=== PATIENT | male | born 1955 | race Caucasian/White ===

== ENCOUNTER 2018-08-30 06:54 | Emergency (ER) | payer BC, SELFPAY ==
[2018-08-30 06:58] VITALS: BP 156/97; PULSE 70; RESP 15; TEMP 36.8; O2SAT 98
--- NOTE | 2018-08-30 07:04 | ED.GENADUL_ITS ---
Discharge Plan Disposition Patient Disposition: HOME Condition: Good Discharge Details Chief Complaint: EyeProblem Clinical Impression: Sensation of foreign body in eye, Sty, internal Primary Care Provider: Rimma Alberto ED Provider: Hernandez Andrews Home Meds and New Rx's Prescriptions: New erythromycin 5 mg/gram (0.5 %) Ointment 3.5 g ophthalmic (eye) QID Qty: 3.5 RF: 0 Continued multivitamin [Men's Multi-Vitamin] 1 EACH tablet 1 ea PO DAILY RF: 0 vitamin E 1,000 UNIT capsule 1,000 unit PO DAILY RF: 0 amlodipine [Norvasc] 2.5 MG tablet 5 mg PO DAILY RF: 0 ascorbate calcium (vitamin C) 500 MG tablet 500 mg PO DAILY RF: 0 cholecalciferol (vitamin D3) 1,000 UNIT tablet 1,000 unit PO DAILY RF: 0 omega-3 fatty acids [Fish Oil] 300 MG capsule 300 mg PO DAILY RF: 0 EPIPEN 0.3 MG/0.3 ML PEN.INJCTR 0.3 mg IM PRN PRNRF: 0 Discharge Instructions Additional Instructions: Use warm compresses and antibiotic ointment as directed. Contact your eye doctor or should be eye care for follow-up in the next day or 2. Return to ED if increasing eye pain, swelling, change in vision. Referrals: [facility] [Outside] Medical Decision Making Patient presenting with right eye irritation/foreign body sensation. Feels like there is something up under the lid. No vision change. No real eye pain. Irritation every time he blinks. Right eye anesthetized with tetracaine drops. Fluorescein stain placed. No obvious foreign body and no corneal uptake of fluorescein on initial exam. Upper eyelid everted and no foreign body noted. Small pimple-like inflamed area towards the medial aspect consistent with a small internal stye noted. Eyelid swiped with Q-tip and no foreign body noted. Eye further examined with slit lamp. No evidence of foreign body or rust ring noted on slit-lamp exam. No fluorescein uptake on slit-lamp exam. We will have the patient use hot compresses and will start erythromycin ointment. Follow-up with his building performance specialist or with [facility] in the next day or 2 for reevaluation. Return to ED if vision changes, increased pain swelling, fever, other concerns. HPI General Mode of arrival: ambulatory . Date/Time Provider Initiated Documentation: 08/30/18 07:04 . Limitations to Documentation: no limitations . Information obtained by: patient . HPI Narrative: Patient presents with right eye irritation. He was working on a car yesterday. He felt something get in his eye. He has had irritation ever since. He flushed his eyes multiple times. This morning continues to have discomfort. He had a little bit of crusting this morning. His eye is red and irritated. There is no change in the vision. No other complaints. Related Data Home Medications Medication Instructions Recorded Confirmed Epipen 0.3 mg IM PRN PRN 12/06/13 06/10/15 amlodipine [Norvasc] 5 mg PO DAILY tab-cap 12/06/13 06/10/15 ascorbate calcium (vitamin C) 500 mg PO DAILY 12/06/13 06/10/15 cholecalciferol (vitamin D3) 1,000 unit PO DAILY 12/06/13 06/10/15 multivitamin [Men's Multi-Vitamin] 1 ea PO DAILY 12/06/13 06/10/15 omega-3 fatty acids [Fish Oil] 300 mg PO DAILY 12/06/13 06/10/15 vitamin E 1,000 unit PO DAILY 12/06/13 06/10/15 erythromycin 3.5 g OPHTHALMIC (EYE) QID #3.5 gm 08/30/18 Previous Rx's Medication Instructions Recorded erythromycin 3.5 g OPHTHALMIC (EYE) QID #3.5 gm 08/30/18 Allergies Allergy/AdvReac Type Severity Reaction Status Date / Time aspirin Allergy Anaphylaxsi Unverified 06/10/15 18:31 s General Stated Complaint: EyeProblem JOE: 4 Review of Systems Constitutional Denies fever(s) and Denies headache(s) Eyes Denies blurry vision, Denies change in vision, Reports eye discharge, Reports irritation, Denies eye pain and Denies photophobia ENT Denies headache(s) Neurologic Denies headache(s) [facility] Medical History Hypertension (Chronic) Social History Smoking/Tobacco Use Status: Former Tobacco Use Drug use: Rarely Substance use type: does not use Do you feel safe at home: Yes Exam Const General: cooperative, comfortable and no acute distress Orientation: alert and oriented x3 HENMT Head: normocephalic and atraumatic Face and sinus: normal facial exam Eyes Periorbital: periorbital findings normal Eyelids: eyelid abnormality right upper eyelid inflamed cyst (tiny pimple like inflamed area noted on eyelid eversion) internal lid Conjunctivae: conjunctival abnormality right conjunctival injection; without chemosis and without discharge Sclera: sclerae normal Cornea: corneas normal and fluorescein used Pupils: PERRL EOM: EOM intact bilaterally Course Vital Signs Temperature 98.2 F 08/30/18 06:58 Pulse 70 08/30/18 06:58 Respiratory Rate 15 08/30/18 06:58 Blood Pressure 156/97 H 08/30/18 06:58 Pulse Oximetry 98 08/30/18 06:58 Temperature 98.2 F 08/30/18 06:58 Temperature Source Tympanic 08/30/18 06:58 Pulse 70 08/30/18 06:58 Respiratory Rate 15 08/30/18 06:58 Respiratory Effort Non-Labored 08/30/18 06:58 Blood Pressure 156/97 H 08/30/18 06:58 Blood Pressure Position Sitting 08/30/18 06:58 Pulse Oximetry 98 08/30/18 06:58 Oxygen Delivery Method Room Air 08/30/18 06:58 Oxygen Flow Rate 0 08/30/18 06:58 Pain Level 5 08/30/18 06:58
[2018-08-30] MEDS: Erythromycin Ophth Oint 3.5 GM TUBE OD (07:32)
[2018-08-30] MEDS: Tetracaine 0.5% 4 ML BTL (07:32)
[2018-08-30] MEDS: Fluorescein STRIPS 100/BOX 1 MG (07:32)
== END 2018-08-30 07:44 | disposition home or self-care (01) ==
LOC: ER 07:48
PROVIDERS: Emergency Provider Emergency Medicine; PCP Nurse Practitioner Family
DX: H57.11 Ocular pain, right eye (principal); H00.021 Hordeolum internum right upper eyelid; I10 Essential (primary) hypertension
CPT/HCPCS: 99283

== ENCOUNTER 2018-09-15 11:22 | Outpatient (REF) | payer BC, SELFPAY ==
[2018-09-15 19:21] LABS: Calculated LDL 198 mg/dL; Cholesterol 294 mg/dL (50-200); Glucose 103 mg/dL (70-100); HDL Cholesterol 37 mg/dL (40-60); Triglyceride 295 mg/dL (30-150)
== END 2018-09-15 11:42 ==
LOC: NCHCN 11:22
PROVIDERS: PCP Nurse Practitioner Family; Visit Provider Nurse Practitioner Family
DX: E78.5 Hyperlipidemia, unspecified (principal); I10 Essential (primary) hypertension; K21.9 Gastro-esophageal reflux disease without esophagitis; F41.9 Anxiety disorder, unspecified
CPT/HCPCS: 80061; 82947; 83721

== ENCOUNTER 2018-11-20 09:43 | Outpatient (REF) | payer BC, SELFPAY ==
[2018-11-20 21:35] LABS: ALT 34 U/L (16-63); AST 21 U/L (15-37); HDL Cholesterol 42 mg/dL (40-60); LDL CHOLESTEROL 63 mg/dL (<100)
[2018-11-20 21:59] LABS: Creatine Kinase 281 U/L (39-308)
== END 2018-11-20 10:03 ==
LOC: NCHCN 09:43
PROVIDERS: PCP Nurse Practitioner Family; Visit Provider Nurse Practitioner Family
DX: E78.5 Hyperlipidemia, unspecified (principal)
CPT/HCPCS: 82550; 83721; 83718; 84450; 84460

== ENCOUNTER 2019-02-22 11:00 | Outpatient (REF) | payer BC, SELFPAY ==
[2019-02-22 22:35] LABS: Anion Gap 7.8 mmol/L (3-11); BUN 14 mg/dL (7-18); CO2 30.2 mmol/L (21.0-32.0); CREATININE 1.09 mg/dL (0.70-1.30); Calcium 9.8 mg/dL (8.5-10.1); Chloride 108 mmol/L (98-107); Glucose 87 mg/dL (74-106); Potassium 4.9 mmol/L (3.5-5.1); Sodium 146 mmol/L (136-145)
== END 2019-02-22 11:20 ==
LOC: NCHCN 11:00
PROVIDERS: PCP Nurse Practitioner Family; Visit Provider Nurse Practitioner Family
DX: I10 Essential (primary) hypertension (principal)
CPT/HCPCS: 80048

== ENCOUNTER 2019-11-05 09:20 | Outpatient (REF) | payer BC, SELFPAY ==
[2019-11-05 21:27] LABS: ALT 43 U/L (16-63); AST 21 U/L (15-37); Albumin 4.1 g/dL (3.4-5.0); Alkaline Phosphatase 88 U/L (46-116); Anion Gap 7.6 mmol/L (3-11); BUN 12 mg/dL (7-18); CO2 28.4 mmol/L (21.0-32.0); CREATININE 0.98 mg/dL (0.70-1.30); Calcium 9.1 mg/dL (8.5-10.1); Calculated LDL 77 mg/dL (<100); Chloride 105 mmol/L (98-107); Cholesterol 147 mg/dL (<200); Glucose 91 mg/dL (74-106); HDL Cholesterol 42 mg/dL (40-60); Potassium 4.3 mmol/L (3.5-5.1); Sodium 141 mmol/L (136-145); Triglyceride 141 mg/dL (<150)
[2019-11-06 00:18] LABS: Creatine Kinase 217 U/L (39-308); Total Protein 6.9 g/dL (6.4-8.2)
== END 2019-11-05 09:40 ==
LOC: NCHCN 09:20
PROVIDERS: PCP Nurse Practitioner Family; Visit Provider Nurse Practitioner Family
DX: I10 Essential (primary) hypertension (principal); E78.5 Hyperlipidemia, unspecified
CPT/HCPCS: 80053; 80061; 82306; 82550; 85027; 82607; 84443

== ENCOUNTER 2020-05-14 08:09 | Outpatient (REF) | payer BC, SELFPAY ==
[2020-05-14 18:20] LABS: BUN 17 mg/dL (7-18); CREATININE 1.2 mg/dL (0.70-1.30); Calcium 9.3 mg/dL (8.5-10.1); Chloride 105 mmol/L (98-107); Glucose 107 mg/dL (74-106); Potassium 4.7 mmol/L (3.5-5.1); Sodium 144 mmol/L (136-145)
== END 2020-05-14 08:10 | disposition home or self-care (01) ==
LOC: NCHCN 08:09
PROVIDERS: PCP Nurse Practitioner Family; Visit Provider Nurse Practitioner Family
DX: I10 Essential (primary) hypertension (principal)
CPT/HCPCS: 80048

== ENCOUNTER 2020-11-25 10:06 | Outpatient (REF) | payer BC, SELFPAY ==
[2020-11-25 15:38] LABS: ALT 47 U/L (16-63); AST 24 U/L (15-37); Calculated LDL 73 mg/dL (<100); Cholesterol 172 mg/dL (<200); HDL Cholesterol 45 mg/dL (40-60); Triglyceride 270 mg/dL (<150)
[2020-11-25 15:53] LABS: Creatine Kinase 183 U/L (39-308)
== END 2020-11-25 10:07 | disposition home or self-care (01) ==
LOC: NCHCN 10:06
PROVIDERS: PCP Nurse Practitioner Family; Visit Provider Nurse Practitioner Family
DX: E78.5 Hyperlipidemia, unspecified (principal)
CPT/HCPCS: 80061; 82550; 84450; 84460

== ENCOUNTER 2020-12-23 08:50 | Outpatient (REF) | payer BC, SELFPAY ==
[2020-12-23 14:27] LABS: Anion Gap 10.6 mmol/L (3-11); BUN 13 mg/dL (7-18); CO2 27.4 mmol/L (21.0-32.0); CREATININE 1.1 mg/dL (0.70-1.30); Calcium 9.5 mg/dL (8.5-10.1); Chloride 105 mmol/L (98-107); Glucose 99 mg/dL (74-106); Sodium 143 mmol/L (136-145)
== END 2020-12-23 08:51 | disposition home or self-care (01) ==
LOC: NCHCN 08:50
PROVIDERS: PCP Nurse Practitioner Family; Visit Provider Nurse Practitioner Family
DX: I10 Essential (primary) hypertension (principal)
CPT/HCPCS: 80048

== ENCOUNTER 2021-02-16 16:40 | Outpatient (REF) | payer BC, SELFPAY ==
[2021-02-16 12:57] LABS: Bacteria Rare HPF (Negative); C & S Indicated? No; Casts Negative LPF (Negative); Crystals Negative HPF (Negative); Epithelial Cells Rare HPF (Negative); Mucus Trace (Negative); WBC 0-2 HPF (0-5)
== END 2021-02-16 16:41 | disposition home or self-care (01) ==
LOC: NCHCN 16:40
PROVIDERS: PCP Nurse Practitioner Family; Visit Provider Nurse Practitioner Family
DX: R31.9 Hematuria, unspecified (principal); R10.9 Unspecified abdominal pain
CPT/HCPCS: 81015; 87086

== ENCOUNTER 2021-02-18 16:21 | Outpatient (REF) | payer BC, SELFPAY ==
[2021-02-18 12:05] LABS: Source Nasal/Nares
[2021-02-18 15:16] LABS: COVID-19 PCR Negative (Negative)
== END 2021-02-18 16:22 | disposition home or self-care (01) ==
LOC: LBN 16:21
PROVIDERS: PCP Nurse Practitioner Family; Visit Provider Nurse Practitioner Gerontology
DX: Z20.822 Contact with and (suspected) exposure to COVID-19 (principal)
CPT/HCPCS: 87635

== ENCOUNTER 2021-02-19 12:23 | Day surgery (SDC) | payer BC, SELFPAY ==
[2021-02-19 12:27] VITALS: BP 153/94; PULSE 72; RESP 16; TEMP 36.6; O2SAT 97
[2021-02-19] MEDS: Lactated Ringers 1,000 ML 80 ML IV (13:00)
--- NOTE | 2021-02-19 13:37 | W.ANESPRE ---
General Info Date of Service Date Performed: 02/19/21 Height: 5 ft 9 in Weight: 80.2 kg Body Mass Index (BMI): 26.1 Surgical Procedure: Operation Date: 02/19/21 14:25 Proposed Procedures Side Surgeon p Cystoscopy/Laser/Retrograde/Ureteroscopy Right Dimitri Alberts MD Meds Allergies and Home Medications Allergies Allergy/AdvReac Type Severity Reaction Status Date / Time aspirin Allergy Severe Anaphylaxsi Verified 02/19/21 12:33 s NSAIDS (Non-Steroidal Allergy Severe Anaphylaxis Verified 02/19/21 12:33 Anti-Inflamma Home Medication Medication Instructions Recorded Epipen 0.3 mg IM PRN PRN 12/06/13 Fish Oil 300 mg PO DAILY 12/06/13 amlodipine [Norvasc] 5 mg PO DAILY tab-cap 12/06/13 ascorbate calcium (vitamin C) 500 mg PO DAILY 12/06/13 cholecalciferol (vitamin D3) 1,000 unit PO DAILY 12/06/13 multivitamin [Men's Multi-Vitamin] 1 ea PO DAILY 12/06/13 vitamin E 1,000 unit PO DAILY 12/06/13 atorvastatin 20 mg tablet 20 mg PO DAILY 02/18/21 lisinopril 10 mg tablet 10 mg PO DAILY 02/18/21 Current Visit Medications: Current Medications Generic Name Dose Route Start Last Admin Trade Name Freq PRN Reason Stop Dose Admin Ringer's Solution 1,000 mls @ 80 mls/hr 02/19/21 06:00 02/19/21 13:00 IV 03/20/21 23:59 80 mls/hr INFUSION SHAYLEE Administration Cefazolin Sodium/Dextrose 2 gm in 50 mls @ 100 mls/hr 02/19/21 06:00 Ancef Duplex IVPB 02/19/21 16:00 PREOP SHAYLEE IV Miscellaneous Supplies 1 each 02/19/21 06:00 Iv Access IV 03/20/21 23:59 DIRECTED SHAYLEE Sodium Chloride 0 ml 02/19/21 06:00 Normal Saline Flush 10 Ml Syr IV 03/20/21 23:59 PRN PRN Sodium Chloride 0 ml 02/19/21 06:00 Normal Saline 10 Ml Vial IJ 03/20/21 23:59 DIRECTED PRN Sterile Water 0 ml 02/19/21 06:00 Water,Injection,Sterile 10 Ml Vial IJ 03/20/21 23:59 DIRECTED PRN PFSH Active Problems Active Problems: Problem Status Onset Code Hypertension I10 Cellulitis and abscess of trunk Medical History Medical History ADD (attention deficit disorder) Anxiety Depression Erectile dysfunction Gross hematuria HLD (hyperlipidemia) Hypertriglyceridemia Migraine Nephrolithiasis Osteoarthritis Patellofemoral syndrome Right flank pain Sebaceous cyst Sleeping difficulties Tobacco Smoking/Tobacco Use Status: Former Tobacco Use Substance Use Substance use: Rarely Substance use type: does not use Vital Signs and Lab Results Vital Signs Most Recent Vital Signs in EMR: Most Recent Vital Signs Temp Pulse Resp BP Pulse Ox 36.6 C 72 16 153/94 H 97 02/19/21 12:27 02/19/21 12:27 02/19/21 12:27 02/19/21 12:27 02/19/21 12:27 Lab Results Blood Type / Crossmatch: No Data to Display Complete Blood Count: No Data to Display Complete Metabolic Panel: No Data to Display Liver Function Panel: No Data to Display Coagulation Panel: No Data to Display Cardiac Panel: No Data to Display Arterial Blood Gas: No Data to Display Venous Blood Gas: No Data to Display Pancreas Panel: No Data to Display Thyroid Panel: No Data to Display Infectious Disease: Coronavirus (COVID-19)(PCR) Negative (Negative) 02/18/21 11:40 02/18/21 Coronavirus 2019 Source Nasal/Nares 02/18/21 11:40 02/18/21 Blood Cultures: No Data to Display Toxicology Panel: No Data to Display Anesthesia Assessment and Plan Anesthesia History Personal History: No History of Anesthesia Complications Family History: No Family History of Anesthesia Complications Exercise Tolerance Exercise Tolerance: Metabolic Equivalents>4 Pertinent Negatives Pertinent Negatives: No Symptoms of GERD Cardiac & Pulmonary Exam Cardiac Exam: Normal S1/S2 Heart Sounds Pulmonary Exam: Clear Bilateral Breath Sounds Implantable Cardiac Device Does patient have a Pacemaker or an ICD?: No Airway Exam Known Difficult Airway: No Mallampati Class: 2 Mouth Opening: Normal (> 3cm) Thyromental Distance: Greater than 3 cm Neck Range of Motion: Full ROM Neck Circumference: Normal Teeth Condition: Removable Dentures/Plates Upper and Removable Dentures/Plates Lower ASA Classification ASA Score: ASA 2 Emergency Case?: No NPO Status NPO Status: NPO Clears >2 hours, Solids >8 hours Anesthesia Plan Resuscitation Status: Full Code Anesthesia Technique: General Anesthesia Airway Planned: Natural Airway Monitors Used: Standard Monitors
--- NOTE | 2021-02-19 13:37 | W.PM.HP.N ---
Date of service: 02/19/21 Time of Service: 13:38 Assessment and Plan Assessment and plan (1) Right distal ureteral calculus: Status: Acute Assessment and plan: With his persistent symptoms, we will move ahead with cystoscopy, right retrograde pyelogram, right ureteroscopy with holmium laser lithotripsy and possible stent. Potential postop issues including bleeding, infection, ureteral injuries or an inability to access the stone requiring a ureteral stent and a staged procedure. History of Present Illness History of Present Illness Chief Complaint: Right ureteral stone Narrative: Behzad is a 65-year-old male referred to urology by [facility] for a right ureteral stone. Patient reports that he was seen earlier this week by his PCPs office and had imaging yesterday that confirmed a right ureteral stone. Patient states that he does have lower back pain but this time his chronic lower back pain was different in nature and has been going on for several weeks. He reports that he has had bouts of gross hematuria. He denies dysuria, frequency, urgency, vomiting, nausea, or fevers. He notes that he did have chills he thinks in the last couple days. He notes that his pain is very variable where he can be very extreme to the point where it is more of a dull ache. He notes due to his allergies he has been taking just Tylenol. He reports that this morning was his worst bout of pain. He states he was about to head back to the emergency room this morning but was able to breathe through until the discomfort subsided. He states he does not like to take opioids and tries to avoid them. He also notes that he has never taken anything like tamsulosin in the past to help his stones. Patient notes that in 2014 he did also have a right ureteral stone that was causing moderate hydronephrosis. He states that he was sent to [facility] and a urologist at that time placed a stent and did stone manipulation. He notes that his stone at that time was smaller than his current stone. He states that the stent was very uncomfortable and caused a great deal of bleeding. He did have 1 other bout of stones in 1991. He recalls thinking that his stone at that time was also on the right side and that it was 10 mm. He notes that he passed that on his own without any kind of surgical intervention. He states he thinks his stone composition is calcium based. He has no history of parathyroidism or gout. He notes he is not the best with drinking water and attempts to try to reduce the salt in his diet. Review of Systems Narrative: No fevers or chills No vision change or dysphasia No diabetes or thyroid No shortness of breath, cough or hemoptysis Hx heart murmur. No chest pain or palpitations Nausea with renal colic. No hepatitis, ulcers, jaundice, diarrhea or constipation No seizures, strokes or peripheral neuropathy No bleeding disorders or anemia No gout PFSH All Active Problems (Updated 02/19/21 @ 13:41 by Dimitri Alberts MD) Right distal ureteral calculus (Acute) Hypertension (Chronic) Cellulitis and abscess of trunk (Acute) Medical History ADD (attention deficit disorder) Anxiety Depression Erectile dysfunction Gross hematuria HLD (hyperlipidemia) Hypertriglyceridemia Migraine Nephrolithiasis Osteoarthritis Patellofemoral syndrome Right flank pain Sebaceous cyst Sleeping difficulties Social History Smoking/Tobacco Use Status: Former Tobacco Use Quit Date: 02/08/92 Smoking risk assessment performed?: Yes Drug use: Rarely Substance use type: does not use Do you feel safe at home: Yes Do you feel safe in your relationship?: Yes Meds Allergies and Home Medications Allergies Allergy/AdvReac Type Severity Reaction Status Date / Time aspirin Allergy Severe Anaphylaxsi Verified 02/19/21 12:33 s NSAIDS (Non-Steroidal Allergy Severe Anaphylaxis Verified 02/19/21 12:33 Anti-Inflamma Home Medications Medication Instructions Recorded Confirmed Type Epipen 0.3 mg IM PRN PRN 12/06/13 02/18/21 History Fish Oil 300 mg PO DAILY 12/06/13 02/19/21 History amlodipine [Norvasc] 5 mg PO DAILY tab-cap 12/06/13 02/19/21 History ascorbate calcium (vitamin C) 500 mg PO DAILY 12/06/13 02/19/21 History cholecalciferol (vitamin D3) 1,000 unit PO DAILY 12/06/13 02/19/21 History multivitamin [Men's Multi-Vitamin] 1 ea PO DAILY 12/06/13 02/19/21 History vitamin E 1,000 unit PO DAILY 12/06/13 02/19/21 History atorvastatin 20 mg tablet 20 mg PO DAILY 02/18/21 02/19/21 History lisinopril 10 mg tablet 10 mg PO DAILY 02/18/21 02/19/21 History Exam Const General: cooperative and comfortable Neck Neck: supple Resp Effort & Inspection: normal respiratory effort Auscultation: clear to auscultation bilaterally Cardio Rate: regular rate Rhythm: regular rhythm GI Palpation: soft and no masses Neuro General: patient alert, patient awake and patient oriented x3 Results Last Vital Signs Temp 36.6 C 02/19/21 12:27 Pulse 72 02/19/21 12:27 Resp 16 02/19/21 12:27 BP 153/94 H 02/19/21 12:27 Pulse Ox 97 02/19/21 12:27
[2021-02-19 13:39] VITALS: BMI 26.1
--- NOTE | 2021-02-19 13:45 | DI.RAD_ITS ---
Exam(s) XR RETROGRADE IN OR EXAM: XR RETROGRADE IN OR CLINICAL HISTORY: Right distal ureteral calculus. TECHNIQUE: 2D and realtime digital imaging was performed. COMPARISON: No exams were available for comparison FINDINGS: Fluoroscopy for was provided for Dr. Alberts for guidance with retrograde examination. Fluoro time 9.3 seconds. Please see procedure note for details. RADIATION DOSE DELIVERED: Ettar= 1.52 mGy
[2021-02-19] MEDS: ceFAZolin 2 GM/50 ML BAG IVPB (14:03)
[2021-02-19] MEDS: Lidocaine 2% Jelly 6 ML SYR (14:19)
[2021-02-19] MEDS: Omnipaque 300 MG/ML 50 ML BTL (14:19)
--- NOTE | 2021-02-19 14:30 | W.PM.DSUDISC ---
Discharge Plan Disposition Patient Disposition: HOME Condition: Stable Discharge Details Reason For Visit: right ureteral stone Attending Provider: Dimitri Alberts Primary Care Provider: Rosemary Daley Home Meds and New Rx's Prescriptions: No Action atorvastatin 20 mg tablet 20 mg PO DAILY RF: 0 lisinopril 10 mg tablet 10 mg PO DAILY RF: 0 multivitamin [Men's Multi-Vitamin] 1 EACH tablet 1 ea PO DAILY RF: 0 vitamin E 1,000 UNIT capsule 1,000 unit PO DAILY RF: 0 amlodipine [Norvasc] 2.5 MG tablet 5 mg PO DAILY RF: 0 ascorbate calcium (vitamin C) 500 MG tablet 500 mg PO DAILY RF: 0 cholecalciferol (vitamin D3) 1,000 UNIT tablet 1,000 unit PO DAILY RF: 0 Fish Oil 300 MG capsule 300 mg PO DAILY RF: 0 EPIPEN 0.3 MG/0.3 ML PEN.INJCTR 0.3 mg IM PRN PRNRF: 0 Discharge Instructions Additional Instructions: followup 6 weeks with renal US no need to strain urine Activity:: Activity as Tolerated Shower/Bathe:: 24 hours Diet:: As Tolerated Discharge Orders Discharge Orders: Discharge Order (Routine); Ordered 02/19/21 Ordered By: Dimitri Alberts DS: Diagnosis Discharge Diagnosis (1) Right distal ureteral calculus: Status: Acute
--- NOTE | 2021-02-19 14:36 | W.PM.OP ---
Date of service: 02/19/21 Time of Service: 14:36 Operative Note Operative Note DATE OF PROCEDURE: 02/19/21 PRE-OP DIAGNOSIS: right ureteral stone POST-OP DIAGNOSIS: same PROCEDURE: Cystoscopy, right rterograde pyelogram, right ureteroscopy with stone extraction SURGEON: Dimitri Alberts ANESTHESIA TYPE: Local By Surgeon and General:No Airway Refer to Anesthesia Record ESTIMATED BLOOD LOSS: 10 PATHOLOGY: other (right ureteral stone for chemical analysis) COMPLICATIONS: None Patient was transported to: same day Patient's condition: stable Implants: none Indications: This is a 65-year-old gentleman who does have a past history of kidney stones. Has had episodes of right sided abdominal and flank pain. He underwent a CT scan which demonstrated a right distal ureteral stone measured about 6 mm in largest dimension He has had persistent symptoms so he presents now for stone manipulation. Findings: Stone in right distal ureter Procedure Description: The patient was given preoperative IV antibiotics. He was brought to the operating room on 02/19/2021. After successful induction of general anesthesia without intubation, he was placed in the dorsal lithotomy position. His genitalia was prepped and draped. 2% Xylocaine jelly was instilled into the urethra to act as a local anesthetic. A 22 Malawian rigid cystoscope was passed through the urethra into the bladder. The urethra and bladder were inspected using a 30 degree lens. The pendulous, bulbar and membranous urethra was showed no strictures. The prostatic urethra showed some lateral lobe enlargement but no significant median lobe. The bladder neck was then entered and the bladder mucosa was inspected. Both ureteral orifices appeared normal. No stones were seen within the bladder. No papillary or nodular mass was seen. The right ureteral orifice was then cannulated with a 6 Malawian access catheter. Retrograde pyelogram was obtained by injecting Omnipaque through the access catheter under fluoroscopic guidance. The right distal ureteral filling defect was identified. I was then able to pass a Glidewire through the lumen of the access catheter and the catheter was removed leaving the wire in place. The cystoscope was removed and was replaced with a semirigid ureteroscope. I was then able to pass the ureteroscope up to the level of the stone. There was no surrounding edema, so I was able to grasp the stone in a Corazon stone basket and remove it in its entirety. The stone was then sent to the laboratory for chemical analysis. Because the stone was removed in 1 pass and because the patient had quite a bit of discomfort with stents previously, we elected not to place a ureteral stent. The guidewire and scope were removed. The patient tolerated this procedure well with no complication.
[2021-02-19 14:43] VITALS: BP 113/82; PULSE 74; RESP 24; TEMP 36.4; O2SAT 94
--- NOTE | 2021-02-19 14:51 | W.ANESPOSTOP ---
Postoperative Evaluation Date, Time and Location Date Performed: 02/19/21 Time Performed: 14:52 Patient Location: Day Surgery Unit Vital Signs Most Recent Imported Vital Signs: Most Recent Vital Signs Temp Pulse Resp BP Pulse Ox 36.4 C L 74 24 113/82 94 02/19/21 14:43 02/19/21 14:43 02/19/21 14:43 02/19/21 14:43 02/19/21 14:43 Pain Score Most Recent Pain Score: Most Recent Pain Score Pain Level 0 02/19/21 14:43 Assessment Mental Status: Awake (Alert & Oriented to Patient Baseline) Airway and Respiratory Function: Patent airway with normal (patient baseline) respiratory exam Cardiovascular Function: Hemodynamically Stable Hydration Status: Adequately Hydrated Nausea & Vomiting: No Nausea or Vomiting Pain: Pt. Denies Any Pain Peripheral Nerve Block: Patient did not receive a nerve block
[2021-02-19 15:10] VITALS: BP 147/95; PULSE 51; RESP 20; TEMP 36.5; O2SAT 96
[2021-02-19] MEDS: Phenazopyridine 200 MG TAB PO (15:18)
[2021-02-19] MEDS: traMADol 50 MG TAB PO (15:19)
[2021-02-19 15:54] VITALS: BP 132/98; PULSE 70; RESP 24; TEMP 36.5; O2SAT 96
[2021-02-19] MEDS: oxyCODONE 5 MG TAB PO (16:18)
[2021-02-19 16:54] VITALS: BP 144/90; PULSE 68; RESP 20; TEMP 36.6; O2SAT 97
[2021-02-21 18:11] LABS: Source: Right Ureter
== END 2021-02-19 17:01 | disposition home or self-care (01) ==
PROVIDERS: PCP Nurse Practitioner Family; Visit Provider Urology
PROC: (CPT 52352; principal; 2021-02-19 14:15)
DX: N20.1 Calculus of ureter (principal); R31.0 Gross hematuria; I10 Essential (primary) hypertension
CPT/HCPCS: 52352; 74420; 82365; J0690; J1100; J2001; J2405; Q9967

== ENCOUNTER 2021-06-24 08:29 | Outpatient (REF) | payer BC, SELFPAY ==
[2021-06-24 15:10] LABS: Anion Gap 7.3 mmol/L (3-11); BUN 13 mg/dL (7-18); CO2 28.7 mmol/L (21.0-32.0); CREATININE 1.1 mg/dL (0.70-1.30); Calcium 9.2 mg/dL (8.5-10.1); Chloride 105 mmol/L (98-107); Glucose 101 mg/dL (74-106); Potassium 4.9 mmol/L (3.5-5.1); Sodium 141 mmol/L (136-145)
== END 2021-06-24 08:30 | disposition home or self-care (01) ==
LOC: NCHCN 08:29
PROVIDERS: PCP Nurse Practitioner Family; Visit Provider Nurse Practitioner Family
DX: I10 Essential (primary) hypertension (principal)
CPT/HCPCS: 80048

== ENCOUNTER 2021-12-23 08:16 | Outpatient (REF) | payer OTHER, SELFPAY ==
[2021-12-23 16:47] LABS: ALT 32 U/L (16-63); AST 26 U/L (15-37); Calculated LDL 82 mg/dL (<100); Cholesterol 170 mg/dL (<200); HDL Cholesterol 48 mg/dL (40-60); Triglyceride 202 mg/dL (<150)
[2021-12-23 17:48] LABS: Creatine Kinase 170 U/L (39-308)
== END 2021-12-23 08:17 | disposition home or self-care (01) ==
LOC: NCHCN 08:16
PROVIDERS: PCP Nurse Practitioner Family; Visit Provider Nurse Practitioner Family
DX: E87.1 Hypo-osmolality and hyponatremia (principal); I10 Essential (primary) hypertension; E78.5 Hyperlipidemia, unspecified; M54.16 Radiculopathy, lumbar region
CPT/HCPCS: 80061; 82550; 84450; 84460

== ENCOUNTER 2022-04-12 20:08 | Outpatient (REF) | payer OTHER, SELFPAY ==
[2022-04-12 16:03] LABS: FREE T4 1.02 ng/dL (0.76-1.46); TSH 1.31 uIU/mL (0.36-3.74)
== END 2022-04-12 20:09 | disposition home or self-care (01) ==
LOC: NCHCN 20:08
PROVIDERS: PCP Nurse Practitioner Family; Visit Provider Nurse Practitioner Family
DX: F41.8 Other specified anxiety disorders (principal)
CPT/HCPCS: 84439; 84443

== ENCOUNTER 2022-04-19 02:09 | Outpatient (CLI) | payer OTHER, SELFPAY ==
--- NOTE | 2022-04-19 11:00 | DI.MRI_ITS ---
Exam(s) MR LUMBAR SPINE WO EXAM: MR LUMBAR SPINE WO CLINICAL HISTORY: LUMBAR BACK PAIN WITH RADICULOPATHY, M54.16. TECHNIQUE: Multiplanar multisequence MRI of the Lumbar spine was performed. COMPARISON: CT CT RENAL COLIC WO from 02/17/2021 FINDINGS: Bones: The last intervertebral disc space is designated the L5/S1 level for the numbering purpose of this examination. The vertebral body heights are well maintained. There is a mild left convex curva ture of the lumbar spine. There are mild endplate degenerative signal changes present. Cord: The conus tip ends at the T12-L1 level. It is of normal size and signal intensity. T12-L1: No disc herniations or bulges are present. No central spinal canal or neural foraminal stenos is. L1-2: No disc herniations or bulges are present. No central spinal canal or neural foraminal stenosis . L2-3: No disc herniations or bulges are present. No central spinal canal or neural foraminal stenosis . L3-4: No disc herniations or bulges are present. No central spinal canal or neural foraminal stenosis .There are mild degenerative changes of the facets. L4-5: There is a mild diffuse disc bulge. No central spinal canal or neural foraminal stenosis.There are degenerative changes of the facets. L5-S1: No disc herniations or bulges are present. No central spinal canal or neural foraminal stenosi s. Soft tissues: The visualized SI joints and sacrum are well maintained. The paraspinal soft tissues ar e unremarkable. IMPRESSION: 1. No evidence of significant spinal stenosis or neuroforaminal narrowing. 2. Degenerative changes in the lumbar spine as described above. DATA REPOSITORY:
== END 2022-04-19 02:29 ==
LOC: DI 02:10
PROVIDERS: PCP Nurse Practitioner Family; Visit Provider Nurse Practitioner Family
DX: M54.16 Radiculopathy, lumbar region (principal); M51.16 Intervertebral disc disorders with radiculopathy, lumbar region
CPT/HCPCS: 72148

== ENCOUNTER 2022-06-21 11:47 | Outpatient (REF) | payer OTHER, SELFPAY ==
[2022-06-21 17:42] LABS: Anion Gap 9.2 mmol/L (3-11); BUN 17 mg/dL (7-18); CO2 27.8 mmol/L (21.0-32.0); CREATININE 1.2 mg/dL (0.70-1.30); Calcium 9.7 mg/dL (8.5-10.1); Chloride 106 mmol/L (98-107); Estimated GFR 66.28 (mL/min/1.73m2); Glucose 101 mg/dL (74-106); Potassium 4.5 mmol/L (3.5-5.1); Sodium 143 mmol/L (136-145)
== END 2022-06-21 11:48 | disposition home or self-care (01) ==
LOC: NCHCN 11:47
PROVIDERS: PCP Nurse Practitioner Family; Visit Provider Nurse Practitioner Family
DX: I10 Essential (primary) hypertension (principal)
CPT/HCPCS: 80048

== ENCOUNTER 2022-12-20 08:46 | Outpatient (REF) | payer OTHER, SELFPAY ==
[2022-12-20 15:45] LABS: ALT 32 U/L (16-63); AST 22 U/L (15-37); HDL Cholesterol 47 mg/dL (40-60); LDL CHOLESTEROL 67 mg/dL (<100)
[2022-12-20 16:30] LABS: Creatine Kinase 161 U/L (39-308)
== END 2022-12-20 08:47 | disposition home or self-care (01) ==
LOC: NCHCN 08:46
PROVIDERS: PCP Nurse Practitioner Family; Visit Provider Nurse Practitioner Family
DX: E87.1 Hypo-osmolality and hyponatremia (principal)
CPT/HCPCS: 82550; 83721; 83718; 84450; 84460

== ENCOUNTER 2023-06-28 09:16 | Outpatient (REF) | payer MEDICARE, OTHER, SELFPAY ==
[2023-06-28 16:24] LABS: Anion Gap 10.4 mmol/L (3-11); BUN 20 mg/dL (7-18); CO2 26.6 mmol/L (21.0-32.0); CREATININE 1.1 mg/dL (0.70-1.30); Calcium 9.7 mg/dL (8.5-10.1); Chloride 106 mmol/L (98-107); Estimated GFR 73.12 (mL/min/1.73m2); Glucose 106 mg/dL (74-106); Potassium 4.5 mmol/L (3.5-5.1); Sodium 143 mmol/L (136-145); Vitamin B12 578 pg/mL (193-986)
== END 2023-06-28 09:17 | disposition home or self-care (01) ==
LOC: NCHCN 09:16
PROVIDERS: PCP Nurse Practitioner Family; Visit Provider Nurse Practitioner Family
DX: I10 Essential (primary) hypertension (principal); F41.9 Anxiety disorder, unspecified
CPT/HCPCS: 80048; 82607

== ENCOUNTER 2023-12-20 08:59 | Outpatient (REF) | payer MEDICARE, SELFPAY ==
--- OUTSIDE RECORDS SUMMARY | 2023-12-20 09:15 | XMS_ITS ---
Author Organization Unknown ALLERGIES AND ADVERSE REACTIONS No information ASSESSMENT No information CHIEF COMPLAINT No information MEDICATIONS No information OBJECTIVE DATA No information PHYSICAL EXAMINATION No information TREATMENT PLAN Planned Care Start Date Provider Encounter for Check-up [phone] PROBLEMS No information RESULTS No information REVIEW OF SYSTEMS No information SUBJECTIVE DATA No information VITAL SIGNS No information
[2023-12-20 17:02] LABS: ALT 35 U/L (16-63); AST 32 U/L (15-37); Albumin 3.9 g/dL (3.4-5.0); Alkaline Phosphatase 95 U/L (46-116); Anion Gap 4.4 mmol/L (3-11); BUN 12 mg/dL (7-18); Bilirubin, Total 0.88 mg/dL (0.2-1.0); CO2 29.6 mmol/L (21.0-32.0); CREATININE 1.2 mg/dL (0.70-1.30); Calcium 9.3 mg/dL (8.5-10.1); Calculated LDL 84 mg/dL (<100); Chloride 109 mmol/L (98-107); Cholesterol 158 mg/dL (<200); Estimated GFR 65.46 (mL/min/1.73m2); Glucose 99 mg/dL (74-106); HDL Cholesterol 52 mg/dL (40-60); Potassium 4.4 mmol/L (3.5-5.1); Sodium 143 mmol/L (136-145); Total Protein 7.1 g/dL (6.4-8.2); Triglyceride 114 mg/dL (<150)
[2023-12-20 18:03] LABS: Hemoglobin A1C 5.3 % (<5.7)
== END 2023-12-20 09:00 | disposition home or self-care (01) ==
LOC: NCHCN 08:59
PROVIDERS: PCP Nurse Practitioner Family; Visit Provider Physician Assistant Medical
DX: E78.5 Hyperlipidemia, unspecified (principal); R73.01 Impaired fasting glucose
CPT/HCPCS: 80053; 80061; 83036

== ENCOUNTER → 2024-01-10 13:39 | Outpatient (BNVA) | payer MEDICARE, SELFPAY | PROVIDERS: PCP Nurse Practitioner Family; Referring Provider Nurse Practitioner Family; Visit Provider Surgery | DX: L72.11 Pilar cyst (principal) | CPT/HCPCS: 99214 ==

== ENCOUNTER → 2024-01-31 07:40 | Outpatient (BNVA) | payer MEDICARE, SELFPAY | PROVIDERS: PCP Physician Assistant Medical; Referring Provider Nurse Practitioner Family; Visit Provider Surgery | DX: L72.11 Pilar cyst (principal) | CPT/HCPCS: 11422 ==

== ENCOUNTER 2024-03-21 12:42 | Emergency (ER) | payer MEDICARE, SELFPAY ==
[2024-03-21 12:43] VITALS: BP 160/85; PULSE 96; RESP 20; TEMP 36.4; O2SAT 96
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
[2024-03-21] MEDS: Oxymetazolone 0.05% SPRAY 15 ML BTL NS (14:33)
[2024-03-21 14:34] VITALS: BP 135/74; PULSE 74; RESP 16; O2SAT 98
== END 2024-03-21 14:34 | disposition home or self-care (01) ==
PROVIDERS: Emergency Provider Emergency Medicine; PCP Physician Assistant Medical
DX: S00.33XA Contusion of nose, initial encounter (principal); W01.198A Fall on same level from slipping, tripping and stumbling with subsequent striking against other object, initial encounter
CPT/HCPCS: 99282; 99283

== ENCOUNTER 2024-12-10 10:12 | Outpatient (REF) | payer MEDICARE, SELFPAY ==
[2024-12-10 16:23] LABS: ALT 38 U/L (16-63); AST 23 U/L (15-37); Albumin 4.1 g/dL (3.4-5.0); Alkaline Phosphatase 112 U/L (46-116); Anion Gap 8.5 mmol/L (3-11); BUN 9 mg/dL (7-18); Bilirubin, Total 0.9 mg/dL (0.2-1.0); CO2 29.5 mmol/L (21.0-32.0); Calcium 10.0 mg/dL (8.5-10.1); Chloride 105 mmol/L (98-107); Cholesterol 182 mg/dL (<200); Glucose 98 mg/dL (74-106); HDL Cholesterol 47 mg/dL (>or=40); Potassium 4.8 mmol/L (3.5-5.1); Sodium 143 mmol/L (136-145); Total Protein 7.5 g/dL (6.4-8.2)
== END 2024-12-10 10:13 | disposition home or self-care (01) ==
LOC: NCHCN 10:12
PROVIDERS: PCP Physician Assistant Medical; Visit Provider Physician Assistant Medical
DX: E78.5 Hyperlipidemia, unspecified (principal); I10 Essential (primary) hypertension
CPT/HCPCS: 80053; 80061